=== PATIENT | male | born 1965 | race Caucasian/White ===

== ENCOUNTER 2019-09-02 13:05 | Outpatient (CLI) | payer OTHER, SELFPAY ==
--- NOTE | ~2019-09-02 | US_ITS ---
EXAMINATION: US soft tissue groin RT DATE: 09/02/2019 14:19 INDICATION: Palpable region in the right perineum lateral to the base of the scrotum. TECHNIQUE: Multiple grayscale and Doppler ultrasound images of the region of concern at the right per ineum were obtained. COMPARISON: CT studies dated 05/20/2011 and 09/07/2013 FINDINGS: There is a poorly defined hypoechoic region measuring approximately 3.0 x 1.4 x 2.0 cm with irregular margins and without increase internal vascular flow on color Doppler located between the base of the scrotum and the ischial tuberosity. No abnormal fluid collections identified. IMPRESSION: 1. Poorly defined approximately 3.0 x 1.4 x 2.0 cm hypoechoic region in the subcutaneous tissues late ral to the base of the scrotum. 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 Additional less likely di fferential diagnosis would include cellulitis or infiltrating neoplasm although there is no significa nt increased internal vascular flow on color Doppler to more specifically suggest these. Could consid er contrast-enhanced MRI for further evaluation as clinically indicated. Reviewed, dictated and finalized at location A. IMPRESSION: 1. Poorly defined approximately 3.0 x 1.4 x 2.0 cm hypoechoic region in the sub cutaneous tissues lateral to the base of the scrotum. Given the location and pa tient's provided history of regular cycling this most likely represents an infl ammatory pseudotumor/perineal nodular induration cyclist nodule which would b e consistent with but not specific for the imaging appearance. Additional less likely differential diagnosis would include cellulitis or infiltrating neoplasm although there is no significant increased internal vascular flow on color Dop pler to more specifically suggest these. Could consider contrast-enhanced MRI f or further evaluation as clinically indicated.
== END 2019-09-02 13:06 | disposition home or self-care (01) ==
PROVIDERS: PCP Internal Medicine; Visit Provider Internal Medicine
DX: R19.09 Other intra-abdominal and pelvic swelling, mass and lump (principal)
CPT/HCPCS: 76882

== ENCOUNTER 2019-11-14 14:11 | Outpatient (CLI) | payer OTHER, SELFPAY ==
--- NOTE | ~2019-11-14 | US_ITS ---
EXAMINATION: US soft tissue groin RT DATE: 11/14/2019 14:54 INDICATION: Right groin mass. TECHNIQUE: Multiple grayscale and Doppler ultrasound images of the right groin were obtained. COMPARISON: Ultrasound 09/02/2019 FINDINGS: In the right groin, there is an ill-defined hypoechoic subcutaneous mass measuring 1.4 x 1. 1 x 0.8 cm, decreased in size from 3.0 x 2.0 x 1.4 cm on 09/02/2019. IMPRESSION: 1. Subcutaneous mass in right groin with interval improvement, likely inflammation. Reviewed, dictated and finalized at location A. IMPRESSION: 1. Subcutaneous mass in right groin with interval improvement, likely inflammat ion.
== END 2019-11-14 14:12 | disposition home or self-care (01) ==
PROVIDERS: PCP Internal Medicine; Visit Provider Urology
DX: R19.09 Other intra-abdominal and pelvic swelling, mass and lump (principal)
CPT/HCPCS: 76882

== ENCOUNTER → 2020-06-20 13:48 | Outpatient (CLI) | payer OTHER, SELFPAY ==
--- NOTE | ~2020-06-20 | US_ITS ---
EXAMINATION: US soft tissue groin RT DATE: 06/20/2020 14:11 INDICATION: Right groin pain TECHNIQUE: Multiple grayscale and Doppler ultrasound images of the region of concern at the right per ineum were obtained. COMPARISON: 11/14/2019 FINDINGS: Again seen is an ill-defined approximately 2.2 x 1.0 x 1.2 cm hypoechoic region in the subcutaneous f at at the region of concern. This appears slightly increased in size since the more recent prior stud y at which time it measured 1.4 x 1.1 x 0.8 cm but decreased from earlier study from 09/02/2019 [facility] time it measured 3.0 x 2.0 x 1.4 cm. IMPRESSION: 1. Minimal increase in size of a previously decreasing chronic subcutaneous mass at the right perineu m most likely representing an inflammatory pseudotumor/perineal nodular induration cyclist nodule . Reviewed, dictated and finalized at location A. IMPRESSION: 1. Minimal increase in size of a previously decreasing chronic subcutaneous mas s at the right perineum most likely representing an inflammatory pseudotumor/pe rineal nodular induration cyclist nodule .
--- NOTE | ~2020-06-20 | CT_ITS ---
EXAMINATION: CT abdomen pelvis wo con DATE: 06/20/2020 14:17 INDICATION: Right flank pain TECHNIQUE: Computed tomography (CT) of the abdomen and pelvis was performed without intravenous contr ast. The dose-length product was 585.95 mGy-cm. Automated exposure control and iterative reconstructi on technique were employed. COMPARISON: CT dated 09/07/2013. FINDINGS: Lung bases are unremarkable. Heart size normal. No significant pleural or pericardial effus ion. The liver, spleen, pancreas, adrenal glands and left kidney are unremarkable. There are increase d number of retroperitoneal lymph nodes, likely reactive. Nonobstructive bowel gas pattern. Gallbladd er is present. There is a 3 mm nonobstructing right renal stone. There are pelvic phleboliths. No ure teral stones or hydronephrosis. Mild osteoarthritis of the hips. Mild lumbar spondylosis. IMPRESSION: 1. Nonobstructing right nephrolithiasis. Reviewed, dictated and finalized at location B.
--- NOTE | ~2020-06-20 | XR_ITS ---
XR abdomen/kub 1V 06/20/2020 14:17 Indication: Right flank pain Procedure: KUB Comparison: 05/16/2011 Findings: Bowel gas pattern is nonobstructive. Lung bases unremarkable. No abnormal calcifications. N o acute osseous abnormality. Impression: 1: Nonobstructive bowel gas pattern. Reviewed, dictated and finalized at location B. Impression: 1: Nonobstructive bowel gas pattern.
== END ==
PROVIDERS: Visit Provider Nurse Practitioner Adult Health
DX: N20.0 Calculus of kidney (principal)
CPT/HCPCS: 74018; 74176; 76882

== ENCOUNTER 2020-08-23 17:41 | Emergency (ER) | payer OTHER, SELFPAY ==
--- NOTE | ~2020-08-23 | CT_ITS ---
EXAMINATION: CT abdomen pelvis wo con EXAM DATE: 08/23/2020 18:27 INDICATION: Right flank pain. History kidney stones. TECHNIQUE: Spiral CT of the abdomen and pelvis was performed without contrast. Axial, coronal and sag ittal images were reviewed. The dose-length product (DLP) for this examination was 178.75 mGy-cm. T he exposure was tailored according to patient size (auto mA exposure control), and iterative reconstr uction (ASIR) was used as additional dose reduction technique. Comparison is made to prior examinatio n from 06/20/2020. FINDINGS: There is a 6 mm right inferior calyceal stone. No obstructing ureteral stones or hydronephr osis. The prostate is unremarkable. The bladder is unremarkable. The liver, spleen, adrenal glands and pancreas are unremarkable. Gallbladder is unremarkable. No biliary obstruction. There is no r etroperitoneal or pelvic lymphadenopathy. The appendix is normal. The stomach and small bowel are unremarkable. There is expected amount of c olonic stool. No free intraperitoneal gas. The heart is normal in size. There are no pericardial or pleural effusions. The lung bases are unremarkable. There are no osteoblastic or osteolytic les ions identified. IMPRESSION: 1. Nonobstructing right nephrolithiasis. Reviewed, dictated and finalized at location A.
[2020-08-23 17:50] VITALS: BP 129/78; PULSE 80; RESP 16; TEMP 36.5; O2SAT 100
[2020-08-23 18:17] LABS: Basophils Absolute Auto 0.1 K/mm3 (0.0-0.1); Eosinophils Absolute Auto 0.1 K/mm3 (0-0.3); Hematocrit 43.6 % (42.0-52.0); Hemoglobin 14.7 g/dL (14.0-18.0); Immature Granulocyte Absolute 0.02 K/mm3 (0.00-0.031); Immature Granulocyte Percent A 0.4 % (0-0.5); Lymphocytes Absolute Auto 0.97 K/mm3 (0.9-3.2); Lymphocytes Percent Auto 19.6 % (18.3-44.2); Mean Corpuscular HGB Conc 33.7 g/dl (32-36); Mean Corpuscular Hemoglobin 30.5 pg (26-34); Mean Corpuscular Volume 90.5 fl (80-100); Mean Platelet Volume 9.5 fl (7.4-10.4); Monocytes Absolute Auto 0.8 K/mm3 (0.1-0.6); Platelet Count Result 294 k/mm3 (150-375); Red Blood Count 4.82 M/mm3 (4.6-6.20); Red Cell Distribution Width 12.7 % (11.5-14.5); White Blood Count 4.9 K/mm3 (4.5-10.0)
[2020-08-23 18:20] LABS: Add Urine Microscopic? YES; Appearance Urine Clear (Clear); Bilirubin Urine Negative (Negative); Blood Urine 2+ (Negative); Color Urine Yellow (Yellow); Glucose Urine UA Negative (Negative); Ketones Urine Negative (Negative); Leukocyte Esterase Ur Negative LEU/UL (Negative); Mucus Urine Rare /lpf; Nitrate Urine Negative (Negative); Protein Urine Negative (Negative); Specific Grav Ur 1.014 (1.001-1.035); Squamous Epithelial Cell Urine Rare /hpf (Few); Urobilinogen Urine Negative mg/dL (<2.0); WBC Urine 0-3 /hpf
[2020-08-23 18:25] LABS: Alanine Aminotransferase 25 U/L (4-50); Albumin Level 4.5 g/dL (3.5-5.1); Alkaline Phosphatase 62 U/L (38-126); Anion Gap 9 mmol/L (8-16); Aspartate Amino Transferase 35 U/L (17-59); Bilirubin,Total 0.7 mg/dL (0.2-1.3); Blood Urea Nitrogen 19 mg/dL (9-20); Calcium 9.1 mg/dL (8.4-10.2); Carbon Dioxide 26 mmol/L (22-30); Chloride 106 mmol/L (98-107); Estimated CRCL calculation 72 ml/min; Estimated Glomerular Filt Rate > 60; Glucose 69 mg/dL (75-110); Lipase 75 U/L (23-300); Potassium 3.8 mmol/L (3.4-5.0); Sodium 141 mmol/L (137-145)
[2020-08-23] MEDS: SODIUM CHLORIDE 0.9% IV 1,000 ML 999 ML IV CONT (18:25)
[2020-08-23] MEDS: KETOROLAC 30 MG/ML VIAL (*BKC) IV PUSH (18:25)
[2020-08-23] MEDS: PROMETHAZINE HCL 25 MG/ML AMPUL 12.5 MG IV PUSH (18:26)
[2020-08-23 18:54] VITALS: BP 125/81; PULSE 63; RESP 18; O2SAT 99
--- NOTE | 2020-08-23 19:13 | ED.ABDPAIN ---
HPI - Abdominal Pain General Chief Complaint: Back Pain/Injury Stated Complaint: Kidney Stone Time Seen by Provider: 08/23/20 18:09 Source: patient Mode of arrival: ambulatory Limitations: no limitations History of Present Illness HPI narrative: Patient is a 55-year-old male complaining of right flank pain, 9 out of 10, sharp, nonradiating accompanied by nausea started approximately 2 hours prior to arrival. Patient states that he has a history of kidney stones. Patient denies any chest pain, shortness of breath, abdominal pain, vomiting, diarrhea, fever or chills. Patient denies any urinary symptoms. Related Data Home Medications Medication Instructions Recorded Confirmed No Home Medications 08/19/19 08/19/19 Allergies Allergy/AdvReac Type Severity Reaction Status Date / Time aspartame Allergy Unknown Headache Verified 08/19/19 12:19 Penicillins Allergy Unknown RASH Verified 08/19/19 12:19 Review of Systems Review of Systems: All systems reviewed & are unremarkable except as noted in HPI and below Constitutional: Constitutional: Denies body ache(s), Denies chills, Denies excessive sweating, Denies fatigue, Denies fever(s), Denies headache(s), Denies lethargy, Denies malaise, Denies weakness and Denies weight loss Eyes: Eyes: Denies blurry vision, Denies change in vision and Denies loss of vision ENT: Denies dizziness, Denies ear discharge, Denies headache(s), Denies lip swelling, Denies epistaxis, Denies nasal congestion, Denies neck pain, Denies throat swelling and Denies tongue swelling Cardiovascular: Cardiovascular: Denies chest pain, Denies chest pain at rest, Denies chest pain with activity, Denies diaphoresis, Denies rapid heart rate, Denies edema, Denies irregular heart rhythm, Denies lightheadedness, Denies palpitations, Denies dyspnea and Denies dyspnea on exertion Respiratory: Respiratory: Denies chest congestion, Denies cough, Denies hemoptysis, Denies dyspnea and Denies dyspnea on exertion Gastrointestinal: Gastrointestinal: Denies abdominal pain, Denies melena, Denies hematochezia, Denies diarrhea, Denies vomiting and Denies hematemesis Musculoskeletal: Musculoskeletal: Denies abnormal gait, Denies deformity, Denies joint swelling, Denies limited range of motion, Denies neck pain and Denies numbness Neurologic: Denies Abnormal speech present, Denies abnormal gait, Denies confusion, Denies dizziness, Denies headache(s), Denies focal weakness, Denies loss of vision, Denies numbness, Denies Other visual disturbances, Denies Sensory deficit (Neuro) and Denies weakness Psychiatric: Psychiatric: Denies confusion, Denies depression, Denies auditory hallucinations, Denies homicidal ideation and Denies suicidal ideation Endocrine: Endocrine: Denies cold intolerance, Denies excessive sweating, Denies fatigue, Denies heat intolerance and Denies palpitations Hematologic/Lymphatic: Hematologic/Lymphatic: Denies easy bleeding and Denies easy bruising Allergic/Immunologic: Allergic/Immunologic: Denies lip swelling, Denies throat swelling and Denies tongue swelling [facility] Past Medical History Medical History (Updated 08/23/20 @ 19:16 by Babak Alexis MD) BMI 23.0-23.9, adult Groin mass Comments Past medical history: None Family history: Noncontributory Social history: Non-smoker no EtOH or drug use Exam Const: General: cooperative, healthy appearing, comfortable, no acute distress, well developed, alert and awake; No confusion Orientation/consciousness: oriented to person, oriented to place, oriented to time, patient oriented x3 and No confusion Limitations: no limitations HENMT: Head: normal to inspection, normocephalic and atraumatic Ears: hearing grossly normal bilaterally, TM normal on the right and TM normal on the left General nose exam: Normal external nose present, Normal nares present and No nasal discharge present Face and sinus: normal facial exam Mouth: Yes Normal oral and palatal mucosa pre
[2020-08-23 19:35] VITALS: BP 117/71; PULSE 63; RESP 16; O2SAT 99
== END 2020-08-23 19:39 | disposition home or self-care (01) ==
PROVIDERS: Emergency Provider Emergency Medicine; PCP Internal Medicine
DX: N20.0 Calculus of kidney (principal)
CPT/HCPCS: 36415; 74176; 80053; 81001; 83690; 85025; 96374; 96375; 99284; J1885; J2550; J7030

== ENCOUNTER 2022-11-12 03:44 | Emergency (ER) | payer OTHER, SELFPAY ==
--- NOTE | ~2022-11-12 | CT_ITS ---
Non-contrast CT scan of the Abdomen and Pelvis Clinical indication: Abdominal pain Technique: 2.5 mm axial scans were obtained through the abdomen and pelvis without intravenous or or al contrast. Dose reduction technique was used on this scan by utilizing automated exposure control a nd iterative reconstruction technique. The dose-length product (DLP) was 517.18 mGy-cm. COMPARISON: 08/23/2020 Findings: Images through the lung bases reveal no abnormalities. There is mild to moderate right hydroureteronephrosis. Calcification in the right pelvis is suspected to represent a distal right ureteral stone measuring 4-5 mm (axial image 133). No left renal or left ureteral stones seen. No left hydronephrosis. The liver, spleen, pancreas, gallbladder, and adrenals appear normal. There is no aortic aneurysm. There is no evidence of bowel obstruction. Normal appendix. Images through the pelvis were performed. There is no evidence of ascites or lymphadenopathy. Urinary bladder unremarkable. Prostate gland is minimally enlarged. Impression: Probable 4-5 mm distal right ureteral stone, as detailed above, with associated mild to moderate righ t hydroureteronephrosis. Reviewed, dictated and finalized at location M. Impression: Probable 4-5 mm distal right ureteral stone, as detailed above, with associated mild to moderate right hydroureteronephrosis.
[2022-11-12 03:48] VITALS: BP 125/78; PULSE 68; RESP 15; TEMP 36.7; O2SAT 100
[2022-11-12] MEDS: KETOROLAC 30 MG/ML VIAL (*BKC) IV PUSH (04:07)
[2022-11-12] MEDS: ONDANSETRON INJ 4 MG/2 ML VIAL IV PUSH (04:07)
[2022-11-12 04:08] LABS: Basophils Percent Auto 0.4 % (0.2-1.2); Eosinophils Absolute Auto 0.1 K/mm3 (0-0.3); Eosinophils Percent Auto 0.5 % (0-4.4); Hematocrit 42.7 % (42.0-52.0); Hemoglobin 14.2 g/dL (14.0-18.0); Immature Granulocyte Absolute 0.04 K/mm3 (0.00-0.031); Immature Granulocyte Percent A 0.4 % (0-0.5); Lymphocytes Absolute Auto 0.56 K/mm3 (0.9-3.2); Mean Corpuscular HGB Conc 33.3 g/dl (32-36); Mean Corpuscular Hemoglobin 31.1 pg (26-34); Mean Corpuscular Volume 93.6 fl (80-100); Mean Platelet Volume 9.4 fl (7.4-10.4); Monocytes Absolute Auto 0.7 K/mm3 (0.1-0.6); Monocytes Percent Auto 6.4 % (2.6-8.5); Neutrophils Absolute Auto 9.8 K/mm3 (1.3-6.7); Neutrophils Percent Auto 87.3 % (45.5-73.1); Platelet Count Result 265 k/mm3 (150-375); Red Blood Count 4.56 M/mm3 (4.6-6.20); Red Cell Distribution Width 12.2 % (11.5-14.5); White Blood Count 11.2 K/mm3 (4.5-10.0)
[2022-11-12] MEDS: SODIUM CHLORIDE 0.9% IV 1,000 ML 999 ML IV CONT (04:08)
[2022-11-12] MEDS: MORPHINE SULFATE (*CRX) 2 MG/ML INJ IV PUSH (04:08)
[2022-11-12 04:17] LABS: Alanine Aminotransferase 26 U/L (6-50); Alkaline Phosphatase 58 U/L (38-126); Anion Gap 5 mmol/L (8-16); Aspartate Amino Transferase 34 U/L (17-59); Bilirubin,Total 0.5 mg/dL (0.2-1.3); Blood Urea Nitrogen 17 mg/dL (9-20); Calcium 8.6 mg/dL (8.4-10.2); Carbon Dioxide 27 mmol/L (22-30); Chloride 107 mmol/L (98-107); Estimated CRCL calculation 78 ml/min; Estimated Glomerular Filt Rate > 60; Glucose 125 mg/dL (65-110); Potassium 3.9 mmol/L (3.4-5.0); Sodium 139 mmol/L (137-145)
--- NOTE | 2022-11-12 04:52 | ED.ABDPAIN ---
HPI - Abdominal Pain General Chief Complaint: Abdominal Pain Stated Complaint: Kidney stone, flank pain Time Seen by Provider: 11/12/22 03:57 History of Present Illness HPI narrative: Patient presents to the emergency department with right flank and abdominal pain. Pain severe prior to arrival. He was vomiting at home and has not been able to urinate. States pain is slowly moving down. He has a history of kidney stones and pain feels similar to previous kidney stones. He is accompanied by his significant other. Who added that patient was alternating between fevers and chills at home Related Data Home Medications Medication Instructions Recorded Confirmed cholecalciferol (vitamin D3) 50 50 mcg PO DAILY 10/16/21 12/24/21 mcg (2,000 unit) capsule Allergies Allergy/AdvReac Type Severity Reaction Status Date / Time aspartame Allergy Unknown Headache Verified 12/24/21 10:12 Penicillins Allergy Unknown RASH Verified 12/24/21 10:12 Review of Systems Review of Systems: Negative except for what is documented in the HPI PMFSH Past Medical History Medical History (Updated 11/12/22 @ 06:27 by Ginger Flower MD) Anxiety BMI 23.0-23.9, adult Colon cancer screening Encounter for preventive health examination Encounter for routine adult health examination with abnormal findings Groin mass Hyperlipidemia Laceration of left index finger On prison drug therapy Vitamin D deficiency Family History Family History Father Hypertension Hyperlipidemia Elevated PSA Renal disease Mother Diabetes mellitus Type II Social History Social History (Updated 12/24/21 @ 10:13 by Rand Del Rio MA) Smoking status: Never smoker Alcohol intake: current Alcohol use details: Social ETOH Lack of Transportation: No Lack of Food: Never True Current Housing: I Have Housing Concerned About Future Housing: No Difficulty Paying Gas/Electric Bills: No Difficulty Paying for Meds: No Currently Unemployed: No Education: Master's Degree or Higher Difficulty w/ Childcare or Family Care: No Living arrangements: with family Occupation/Education: occupation Gender identity (if verbalized by the patient): Male Exam Narrative: GENERAL: Well-appearing, well-nourished, and in no acute distress. HEAD: Normocephalic, atraumatic. EYES: PERRLA and EOMI. ENT: Nares clear, no rhinorrhea or epistaxis. Mucous membranes moist. NECK: Supple. CHEST: Clear to auscultation. No respiratory distress. HEART: Regular rate and rhythm. ABDOMEN: Soft, nontender, nondistended. EXTREMITIES: Normal range of motion. No edema. SKIN: Warm, dry, no rash. NEURO: No focal deficits. Alert and oriented x3. PSYCH: Normal mood and affect. Course Course Emergency Course: Differential diagnosis includes but not limited to kidney stone, urinary tract infection, colitis, appendicitis Telemetry ordered due to getting narcotics to evaluate for dysrhythmias. Evaluated by myself. Rhythm NSR Rate [address] shows obstructing stone with hydronephrosis U/A pending Urinalysis shows large amount of red blood cells and white blood cells. Ratio of red blood cells 2 white blood cells less concerning for urinary tract infection. Will discharge to home Vital Signs Vital signs: Vital Signs Temperature 36.7 C 11/12/22 03:48 Pulse Rate 68 11/12/22 03:48 Respiratory Rate 15 11/12/22 03:48 Blood Pressure 125/78 11/12/22 03:48 Pulse Oximetry 100 11/12/22 03:48 Oxygen Delivery Room Air 11/12/22 03:48 Temperature 36.7 C 11/12/22 03:48 Pulse Rate 68 11/12/22 03:48 Respiratory Rate 15 11/12/22 03:48 Blood Pressure 125/78 11/12/22 03:48 Pulse Oximetry 100 11/12/22 03:48 Oxygen Delivery Room Air 11/12/22 03:48 MDM - Abdominal Pain Lab Data 11/12/22 04:02 11/12/22 04:02 Labs:
[2022-11-12 06:00] LABS: Appearance Urine Cloudy (Clear); Bacteria Urine None Seen /hpf; Bilirubin Urine Negative (Negative); Blood Urine 3+ (Negative); Color Urine Yellow (Yellow); Glucose Urine UA Negative (Negative); Ketones Urine 1+ mg/dL (Negative); Leukocyte Esterase Ur 1+ LEU/UL (Negative); Nitrate Urine Negative (Negative); Protein Urine 1+ mg/dL (Negative); RBC Urine >100 /hpf (0-2); Specific Grav Ur 1.018 (1.001-1.035); Squamous Epithelial Cell Urine Few /hpf (Few); Urobilinogen Urine 0.2 mg/dL (<2.0); WBC Urine 21-50 /hpf; pH Urine 5.5 (5.0-9.0)
[2022-11-12 06:02] LABS: Add Urine Microscopic? YES
[2022-11-12 06:55] VITALS: BP 113/71; PULSE 58; RESP 15; O2SAT 98
== END 2022-11-12 06:57 | disposition home or self-care (01) ==
PROVIDERS: Emergency Provider Emergency Medicine; PCP Internal Medicine
DX: N13.2 Hydronephrosis with renal and ureteral calculous obstruction (principal); E78.5 Hyperlipidemia, unspecified; E55.9 Vitamin D deficiency, unspecified; Z87.442 Personal history of urinary calculi
CPT/HCPCS: 36415; 74176; 80053; 81001; 85025; 87086; 96361; 96374; 96375; 99284; J1885; J2270; J2405; J7030

== ENCOUNTER 2024-10-17 15:51 | Outpatient (CLI) | payer OTHER, SELFPAY ==
--- NOTE | ~2024-10-17 | CT_ITS ---
EXAMINATION: CT abdomen pelvis wo con DATE: 10/17/2024 16:31 INDICATION: Hematuria TECHNIQUE: Computed tomography (CT) of the abdomen and pelvis was performed without intravenous contrast. The dose-length product was 193.16 mGy-cm. COMPARISON: 11/12/2022 FINDINGS: There is a too small to characterize low-attenuation lesion in the right lobe of the liver, unchanged. The liver is otherwise unremarkable. The spleen, adrenal glands, gallbladder and kidneys are unremarkable. No renal calculi. Abdominal aorta is not aneurysmal. No appendicitis. No free fluid in the abdomen. No bladder calculi. Mild concentric thickening of the tavarez of the mildly distended bladder. Stable 3 mm phlebolith in the left hemipelvis. Prostate gland is mildly enlarged. Moderate amount of stool. Multilevel degenerative change in the lumbar spine similar to the prior study. No dilated bowel loops. IMPRESSION: 1. Mild concentric thickening of the tavarez of the mildly distended bladder. Differential includes incomplete bladder wall distention or mild cystitis. 2. No CT evidence for renal, ureteral or bladder calculi. No hydronephrosis. Reviewed, dictated and finalized at location Q. IMPRESSION: 1. Mild concentric thickening of the tavarez of the mildly distended bladder. Dif ferential includes incomplete bladder wall distention or mild cystitis. 2. No CT evidence for renal, ureteral or bladder calculi. No hydronephrosis.
--- OUTSIDE RECORDS SUMMARY | 2024-10-17 15:56 | XMS_ITS | Clinical Summary ---
Author Organization [facility] Arch[facility] Address [address] [place] [address] Care Team Providers Care Voice Over Announcer Name Role Phone Jose Fitch MD Primary Care Provider [phone] Source Comments [facility],non-owned Affiliates and Associated Physician Practices is amultiple site organization consisting of ambulatory clinics and hospital sitesin [place], [place] and [place]. This disclosure is being madepursuant to the Care Everywhere program and may not contain all information available regarding this patient. Last updated 17.[facility] Allergies No known active allergies Medications * Be aware that medications may not be up to date on this document. Alwaysverify current medications with the patient. 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 Gender Identity Not on file Sexual Orientation Not on file Last Filed Vital Signs Vital Sign Reading Time Taken Comments Blood Pressure 110/64 03/07/2017 11:20 AM SENIOR PRODUCT ANALYST Pulse 62 03/07/2017 11:20 AM SENIOR PRODUCT ANALYST Temperature 36.6 C (97.8 F) 03/07/2017 11:20 AM SENIOR PRODUCT ANALYST Respiratory Rate - - Oxygen Saturation - - Inhaled Oxygen Concentration - - Weight - - Height - - Body Mass Index - - Plan of Treatment Health Maintenance Due Date Last Done Comments CHRISTIN (AGES 45-75) - COL ON CA SCREENING 1967 COLON MONITORING 1967 COLONOSCOPY - COLON CA SCREENING 1967 CT COLONOGRAPHY - COLON CA SCREENING 1967 Colorectal Cancer Screening 1967 FIT - COLON CA SCREENING 1967 FLEX SIG - COLON CA SCREENING 1967 LIPID TESTING 1967 HIV SCREENING 07/20/1982 HEPATITIS C SCREENING 07/16/1985 DTAP/TDAP/TD VACCINES (1 - Tdap) 07/20/1986 HEPATITIS B VACCINE (1 of 3 - 19+ 3-dose series) 07/20/1986 PNEUMOCOCCAL VACCINE 50+ (1 of 1 - PCV) 07/20/2017 ZOSTER VACCINE (1 of 2) 07/20/2017 COVID-19 VACCINE ( - 2023-2 5 season) 2023 DEPRESSION SCREENING 02/24/2024 INFLUENZA VACCINE (#1) 2024 HIB VACCINE Aged Out No longer eligi ble based on patient's age to complete this topic HPV VACCINE Aged Out No longer eligi ble based on patient's age to complete this topic MENINGOCOCCAL (Group B) VACC INE SHARED DECISION-MAKING Aged Out No longer eligibl e based on patient's age to complete this topic MENINGOCOCCAL GROUPS A/C/Y/W VACCINE Aged Out No longer eligible b ased on patient's age to complete this topic Insurance Care Teams Voice Over Announcer Relationship Specialty Start Date End Date Jose Fitch MD [address] [place], [place] [id number] [place] [address] PCP - General Internal Medicine 03/07/17
--- OUTSIDE RECORDS SUMMARY | 2024-10-17 15:56 | XMS_ITS | Clinical Summary ---
Author Organization [facility] Address [address] [place] [address] Phone Care Team Providers Care Malt Loader Name Role Phone Jaspal Claros MD Primary Care Provider Allergies Active Allergy Reactions Criticality Noted Date Comments Penicillins Rash Reaction: Rash, , Medications ALPRAZolam (XANAX) 0.5 mg tablet take 1 tablet by oral route 3 times every day 60 0 5 Active Additional Information Patient not taking.Reported on 08/29/2019 levoFLOXacin (LEVAQUIN) 750 mg tablet take 1 tablet by oral route every day 5 0 6 Active Additional Information Patient not taking.Reported on 08/29/2019 Active Problems No known active problems Immunizations Immunization Administration Dates Next Due Influenza, Quadrivalent, Spl it, Preservative Free, Intramuscular 12/12/2013 Influenza, Trivalent, IM (MDV) 11/23/2012,2011 Influenza, Trivalent, Recomb inant, Egg Free, Preservative Free, Antibiotic Free, IM (FLUBLOK) 11/29/2014 Surgical History Surgery Date Site/Laterality Comments KIDNEY STONE SURGERY KNEE SURGERY Medical History Medical History Date Comments Hx Other Medical renal stents Kidney stone Migraines Family History Medical History Relation Name Comments Hyperlipidemia Father Hyperlipidemi a; Hypertension Father Hypertension; Diabetes Mother Diabetes mellit us; Relation Name Status Comments Father Mother Social History Tobacco Use Types Packs/Day Years Used Date Smoking Tobacco: Never Alcohol Use Standard Drinks/Week Comments Yes 0 (1 standard drink = 0.6 oz pur e alcohol) Sex and Gender Information Value Date Recorded Sex Assigned at Not on file Legal Sex Male 12:34 AM 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 Gender Identity Not on file Sexual Orientation Not on file Obstetrics History Last Filed Vital Signs Vital Sign Reading Time Taken Comments Blood Pressure 108/72 03/07/2016 8:33 AM 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 Pulse 56 03/07/2016 8:33 AM 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 Temperature - - Respiratory Rate - - Oxygen Saturation 98% 03/07/2016 8:33 AM 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 Inhaled Oxygen Concentration - - Weight 81.6 kg (180 lb) 08/29/2019 5:00 PM CDT Height 188 cm (6' 2) 08/29/2019 5:00 PM CDT Body Mass Index 23.11 08/29/2019 5:00 PM CDT Plan of Treatment Health Maintenance Due Date Last Done Comments Colon Cancer Screening-Colonoscopy 1967 Depression Screening 1967 Hepatitis C Screening 1967 Prostate Cancer Screening-PSA 1967 DTaP/Tdap/Td Vaccine (1 - Tdap) 07/20/1978 Hepatitis B Screening 07/20/1985 Regular Well Visit/Exam 18-64 07/20/1985 Zoster Vaccine (1 of 2) 07/20/2017 Influenza Vaccine (#1) 2024 9, 04/30/2018, 11/29/2014, Additional history exists Pneumococcal vaccine <65 Aged Out No longer eligible based on patient's age to complete this topic Insurance [facility] [employer] Address: [address] [facility] [address] [place] [address] [facility] [address] Care Teams Malt Loader Relationship Specialty Start Date End Date Jaspal Claros MD [address] [place] [address] PCP - General Internal Medicine 10/04/18
[2024-10-17 16:54] LABS: Hematocrit 42.2 % (42.0-52.0); Hemoglobin 14.1 g/dL (14.0-18.0); Immature Granulocyte Percent A 0.8 % (0-0.5); Lymphocytes Absolute Auto 0.97 K/mm3 (0.9-3.2); Mean Corpuscular HGB Conc 33.4 g/dl (32-36); Mean Corpuscular Hemoglobin 30.7 pg (26-34); Mean Corpuscular Volume 91.9 fl (80-100); Nucleated Red Blood Cells Absolute Auto 0.000 K/mm3 (0.0-0.012); Nucleated Red Blood Cells Perc 0.0 % (0.0-0.2); Platelet Count Result 314 k/mm3 (150-375); Red Blood Count 4.59 M/mm3 (4.6-6.20); White Blood Count 6.6 K/mm3 (4.5-10.0)
[2024-10-17 17:03] LABS: Add Urine Microscopic? YES; Appearance Urine Clear (Clear); Glucose Urine UA Negative (Negative); Leukocyte Esterase Ur Trace LEU/UL (Negative); Nitrate Urine Negative (Negative); Non Pathogenic Casts 0-2; Specific Grav Ur 1.021 (1.001-1.035)
[2024-10-17 17:16] LABS: Anion Gap 7 mmol/L (4-12); Blood Urea Nitrogen 15 mg/dL (9-20); Calcium 8.9 mg/dL (8.4-10.2); Carbon Dioxide 27 mmol/L (22-30); Chloride 105 mmol/L (98-107); Estimated Glomerular Filt Rate > 60; Glucose 91 mg/dL (65-110); Potassium 3.7 mmol/L (3.4-5.0); Sodium 139 mmol/L (137-145)
== END 2024-10-17 15:52 | disposition home or self-care (01) ==
LOC: ANHIMG 15:53
PROVIDERS: PCP Internal Medicine; Visit Provider Internal Medicine
DX: R31.9 Hematuria, unspecified (principal)
CPT/HCPCS: 36415; 74176; 80048; 81001; 85025; 87086